=== PATIENT | female | born 1950 | race Caucasian/White ===

== ENCOUNTER 2021-01-10 12:18 | Outpatient (CLI) | payer OTHER | END 2021-01-10 12:29 | disposition home or self-care (01) | LOC: MAMO-SONO 12:18 | DX: N64.4 Mastodynia (principal); M54.2 Cervicalgia; M62.830 Muscle spasm of back; E04.2 Nontoxic multinodular goiter; Z12.31 Encounter for screening mammogram for malignant neoplasm of breast ==